=== PATIENT | female | born 1945 | race Caucasian/White ===

== ENCOUNTER → 2019-01-22 | Outpatient (CLI) | payer MEDICARE | LOC: CARD 09:04 | PROVIDERS: ATTEND Internal Medicine Cardiovascular Disease | DX: I10 Essential (primary) hypertension (principal); R07.9 Chest pain, unspecified; Z82.49 Family history of ischemic heart disease and other diseases of the circulatory system; Z83.3 Family history of diabetes mellitus | CPT/HCPCS: 93306 ==

== ENCOUNTER → 2019-01-31 | Outpatient (CLI) | payer MEDICARE ==
[~2019-01-31] VITALS: Ht 160 cm; Wt 50.8 kg
[~2019-01-31] MED LIST: CATHETER FLUSH 10 ML SYR IV PRN
[2019-01-31 09:28] VITALS: BP 165/77
[2019-01-31 09:31] VITALS: BP 171/86
[2019-01-31 09:34] VITALS: BP 172/77
--- NOTE | 2019-01-31 15:59 | STRESS TEST ---
DATE OF SERVICE: 01/31/2019 EXERCISE MYOVIEW STRESS TEST REPORT REFERRING PHYSICIAN: Yvan Mensah DO Baseline heart rate is 81, baseline blood pressure 164/76. Baseline EKG sinus rhythm with no ischemic changes. In summary, the patient was injected with 10.33 mCi of technetium-99 Myoview and the resting images were obtained. Then, the patient started exercising with a baseline heart rate, blood pressure and EKG mentioned above, was able to exercise for a total of 2 minutes 30 seconds on standard Francis protocol. With peak exercise level, EKG was showing no significant ischemic changes. Blood pressure was 172/77. During recovery, heart rate and blood pressure returned to baseline. EKG returned to baseline. The resting and stress images were reviewed and compared in the short axis, horizontal long axis, and vertical long axis views. Review of the images showed good radiotracer uptake with no significant ischemia or infarction. SSS is 1, SDS 1, TID value 1.04. On the gated images, the left ventricle appeared to be normal size with normal contractility. Calculated ejection fraction 75%. CONCLUSION: 1. Poor exercise tolerance, a total of 2 minutes 30 seconds on standard Francis protocol, total of 4.0 METS achieving 93% of maximum expected heart rate. 2. Appropriate heart rate and blood pressure response to exercise returned to baseline during recovery. 3. Nondiagnostic EKG changes with exercise returned to baseline during recovery. 4. No ischemia or infarction on SPECT images. 5. Normal left ventricular size with normal contractility. Calculated ejection fraction 75%. Job ID: [id number] DocumentID: [id number] Dictated Date: 01/31/2019 15:17:09 Sport Internship Date: 01/31/2019 15:58:32 Dictated By: ANJEL SETHI MD
== END ==
LOC: CARD 07:30
PROVIDERS: ATTEND Internal Medicine Cardiovascular Disease
DX: I10 Essential (primary) hypertension (principal); I25.10 Atherosclerotic heart disease of native coronary artery without angina pectoris; Z83.3 Family history of diabetes mellitus; Z82.49 Family history of ischemic heart disease and other diseases of the circulatory system
CPT/HCPCS: 78452; 93017

== ENCOUNTER 2019-05-29 13:33 | Outpatient (CLI) | payer MEDICARE ==
[~2019-05-29] VITALS: Ht 157.5 cm; Wt 46.7 kg
[2019-05-29 13:47] VITALS: BP 146/72
[2019-05-29 14:13] LABS: BASOPHILS % (AUTO) 0 % (0-10); EOSINOPHILS % (AUTO) 0 % (0-10); HEMATOCRIT 40 % (35-52); LYMPHOCYTES # (AUTO) 0.8 X 10^3 (1.0-4.0); LYMPHOCYTES % (AUTO) 14 % (12-44); MEAN CORPUSCULAR HEMOGLOBIN 30 PG (25-34); MEAN CORPUSCULAR HGB CONC 32 G/DL (32-36); MEAN CORPUSCULAR VOLUME 94 FL (80-99); MEAN PLATELET VOLUME 11.6 FL (7.4-10.4); MONOCYTES # (AUTO) 0.6 X 10^3 (0.0-1.0); MONOCYTES % (AUTO) 11 % (0-12); NEUTROPHILS # (AUTO) 4.1 X 10^3 (1.8-7.8); NEUTROPHILS % (AUTO) 75 % (42-75); PLATELET COUNT 179 10^3/uL (130-400); RED CELL DISTRIBUTION WIDTH 12.6 % (10.0-14.5); WHITE BLOOD COUNT 5.4 10^3/uL (4.3-11.0)
[2019-05-30] MEDS ORDERED: MAGN400T6 PO (08:40)
[2019-05-30] MEDS ORDERED: MV-M1TAB57 PO (08:40)
[2019-05-30] MEDS ORDERED: AMLO10TA7 PO (08:40)
[2019-05-30] MEDS ORDERED: ZINC50TA51 PO (08:40)
[2019-05-30] MEDS ORDERED: LOSA1TAB20 PO (08:40)
[2019-05-30] MEDS ORDERED: CA C1TAB79 PO (08:40)
[2019-06-01] MEDS ORDERED: IBUP-1773 PO (13:56)
[2019-06-01] MEDS ORDERED: OXYC1TAB87 PO ×2 (13:56→14:04)
== END 2019-05-29 14:02 | disposition home or self-care (01) ==
LOC: PREOP 13:33
PROVIDERS: ATTEND Obstetrics & Gynecology
DX: Z01.812 Encounter for preprocedural laboratory examination (principal); D64.9 Anemia, unspecified; N95.0 Postmenopausal bleeding; R19.00 Intra-abdominal and pelvic swelling, mass and lump, unspecified site
CPT/HCPCS: 36415; 85025; 86850; 86900; 86901; 87081

== ENCOUNTER 2019-06-01 12:10 | Day surgery (SDC) | payer MEDICARE ==
[2019-06-01] VITALS (9 sets, daily range): BP systolic 93–162; BP diastolic 53–82
[~2019-06-01] VITALS: Ht 157.5 cm; Wt 46.7 kg
[~2019-06-01 12:10] MED LIST changes: +AMLO10TA7 PO; +CA C1TAB79 PO; -CATHETER FLUSH 10 ML SYR IV PRN; +LOSA1TAB20 PO; +MAGN400T6 PO; +MV-M1TAB57 PO; +ZINC50TA51 PO
[2019-06-01] MEDS: LACTATED RINGERS 1,000 ML IV PRN ×2 (12:50→16:00)
[2019-06-01] MEDS ORDERED: proPOfol 200 MG/20 ML (DIPRIVAN) VIAL IV ONE (12:55)
[2019-06-01] MEDS ORDERED: LIDOCAINE PF 2% 5 ML (XYLOCAINE) VIAL ONE (12:55)
[2019-06-01] MEDS ORDERED: ONDANSETRON 4 MG/2 ML (SDV) Z0FRAN ONE (12:55)
[2019-06-01] MEDS ORDERED: DEXAMETHASONE 10 MG/ML (DECADRON) 1 ML VIAL ONE (12:55)
[2019-06-01] MEDS ORDERED: SEVOFLURANE (ULTANE) 15 ML INHAL SOLN ONE ×4 (12:55→15:02)
[2019-06-01] MEDS ORDERED: fentaNYL INJECTION 100 MCG/2 ML AMP ONE (12:56)
[2019-06-01] MEDS ORDERED: MIDAZOLAM 2 MG/2 ML (VERSED) VIAL ONE (12:56)
[2019-06-01] MEDS ORDERED: ROCURONIUM 10 MG/ML 5 ML SYRINGE IV ONE (12:58)
[2019-06-01] MEDS ORDERED: ceFAZolin INJECTION 1,000 MG in WATER (STERILE) FOR INJECTION 10 ML IV ONE (13:00)
[2019-06-01] MEDS ORDERED: BUP/EPI 0.25% 1:200,000 (MARCAINE) 10 ML VIAL IJ ONE (13:48)
--- NOTE | 2019-06-01 13:50 | Progress Note-Pre Operative ---
Pre-Operative Progress Note H&P Reviewed The H&P was reviewed, patient examined and no changes noted. Date Seen by Provider: Jun 01, 2019 Time Seen by Provider: 13:50 Date H&P Reviewed: Jun 01, 2019 Time H&P Reviewed: 13:50 Pre-Operative Diagnosis: Menopausal bleeding/intrauterine mass TABITHA SUAREZ MD Jun 01, 2019 13:50
[2019-06-01] MEDS ORDERED: D5 LR IV SOLUTION 1,000 ML IV SCH (13:51)
--- NOTE | 2019-06-01 13:51 | Progress Note-Post Operative ---
Post-Operative Progess Note Surgeon (s)/Sales Assistant Institutional Sales (s) Surgeon TABITHA SUAREZ MD Sales Assistant Institutional Sales: none Pre-Operative Diagnosis Menopausal bleeding/intrauterine mass Post-Operative Diagnosis Same with final pathology pending - benign frozen section pathology Procedure & Operative Findings Date of Procedure 06/01/19 Procedure Performed/Findings Hysteroscopy with directed biopsy and D&C Anesthesia Type GETA Estimated Blood Loss Estimated blood loss (mL): Minimal Specimens/Packing Specimens Removed Intrauterine directed endometrial biopsy and endometrial curettings Packing: None TABITHA SUAREZ MD Jun 01, 2019 13:51
[2019-06-01] MEDS ORDERED: IBUP-1773 PO (13:56)
[2019-06-01] MEDS ORDERED: OXYC1TAB87 PO ×2 (13:56→14:04)
--- NOTE | 2019-06-01 13:57 | Discharge Instructions ---
Discharge Instructions Discharge Medications New, Converted or Re-Newed RX: RX on Chart Patient Instructions Patient Instructions: As directed Return to The Hospital For: As directed Activity & Diet Discharge Diet: No Restrictions Activity as Tolerated: No Orders-Post D/C & Referrals Follow Up Appt: Call to make follow up appt. for patient in 2 weeks. Activity: Rest for 24 hours, than as tolerated. Please call in RX to patient pharmacy. Diet: As tolerated-Clear Liquids only if nauseated. shower or tub bathe as desired. No driving for 24 hours, no alcoholic beverages for 24 hours, and nothing per vagina (no tampons, douching, or intercourse) for 2 weeks. Patient to return to the clinic as soon as possible for: Temperature greater than 101F, Severe Pain, Foul discharge from incision or vagina, Excessive Bleeding (more than a period). TABITHA SUAREZ MD Jun 01, 2019 13:57
[2019-06-01] MEDS ORDERED: ONDANSETRON 4 MG/2 ML (SDV) Z0FRAN IVP PRN ×2 (14:00→15:30)
[2019-06-01] MEDS ORDERED: PROMETHAZINE INJ 25 MG/ML (PHENERGAN) AMP IM ONE (14:00)
[2019-06-01] MEDS ORDERED: oxyCODONE/APAP 5/325MG (PERCOCET 5) TABLET PO PRN (14:00)
[2019-06-01] MEDS ORDERED: MEPERIDINE (DEMEROL) INJ 100 MG/ML IM ONE (14:00)
[2019-06-01] MEDS ORDERED: KETOROLAC 30 MG/ML VIAL IVP ONE (14:00)
[2019-06-01] MEDS ORDERED: KETOROLAC 30 MG/ML VIAL ONE (15:22)
[2019-06-01] MEDS ORDERED: morphine INJ 10 MG/ML 1ML (SYR OR VIAL) IVP ONE (15:30)
[2019-06-01] MEDS ORDERED: MEPERIDINE (DEMEROL) INJ 50 MG/ML IVP ONE (15:30)
[2019-06-01] MEDS ORDERED: PROMETHAZINE INJ 25 MG/ML (PHENERGAN) AMP IVP ONE (15:30)
[2019-06-01] MEDS ORDERED: HYDROmorphone 2 MG/ML VIAL (DILAUDID) IV ONE (15:30)
--- OUTSIDE RECORDS SUMMARY | 2019-06-01 20:39 | XMS REPORT | Continuity of Care Document ---
Author Organization Unknown Address Unknown Allergies Active Description Code Type Severity Reaction Onset Reported/Identified Relationship to Patient Clinical Status Yes NO KNOWN DRUG ALLERGIES UNKNOWN NO KNOWN DRUG ALLERG Yes No Known Drug Allergies [id number] Drug Allergy Unknown N/A 01/31/2019 Medications There is no data. Problems Date Dx Coded Attending Type Code Diagnosis Diagnosed By 12/25/2014 COCO PATRICIA, RODRIGO Ot 288.50 12/25/2014 COCO PATRICIA, RODRIGO Ot 401.9 12/25/2014 COCO PATRICIA, RODRIGO Ot 716.90 01/02/2015 COCO PATRICIA, RODRIGO Ot 288.50 01/02/2015 COCO PATRICIA, RODRIGO Ot 401.9 01/02/2015 COCO PATRICIA, RODRIGO Ot 716.90 10/27/2017 Yvan Mensah V72.31 ROUTINE GYNECOLOGICAL EXAMINATION 10/27/2017 Yvan Mensah Z01.411 ENCOUNTER FOR GYNECOLOGICAL EXAMINATION (GENERAL) (ROUTINE) WITH ABNORMAL FINDINGS 10/27/2017 Yvan Mensah V72.31 ROUTINE GYNECOLOGICAL EXAMINATION 10/27/2017 Yvan Mensah Z01.411 ENCOUNTER FOR GYNECOLOGICAL EXAMINATION (GENERAL) (ROUTINE) WITH ABNORMAL FINDINGS 03/16/2018 Yvan Mensah 401.9 UNSPECIFIED ESSENTIAL HYPERTENSION 03/16/2018 Yvan Mensah I10 ESSENTIAL (PRIMARY) HYPERTENSION 03/16/2018 Yvan Mensah 401.9 UNSPECIFIED ESSENTIAL HYPERTENSION 03/16/2018 Yvan Mensah I10 ESSENTIAL (PRIMARY) HYPERTENSION 08/17/2018 Yvan Mensah 729.5 PAIN IN LIMB 08/17/2018 Yvan Mensah M79.672 PAIN IN LEFT FOOT 08/17/2018 Yvan Mensah 729.5 PAIN IN LIMB 08/17/2018 Yvan Mensah M79.672 PAIN IN LEFT FOOT 11/30/2018 Yvan Mensah 401.9 UNSPECIFIED ESSENTIAL HYPERTENSION 11/30/2018 Yvan Mensah I10 ESSENTIAL (PRIMARY) HYPERTENSION 11/30/2018 Yvan Mensah 401.9 UNSPECIFIED ESSENTIAL HYPERTENSION 11/30/2018 Yvan Mensah I10 ESSENTIAL (PRIMARY) HYPERTENSION 11/30/2018 Yvan Mensah V76.19 OTHER SCREENING BREAST EXAMINATION 11/30/2018 Yvan Mensah Z12.39 ENCOUNTER FOR OTHER SCREENING FOR MALIGNANT NEOPLASM OF BREAST 11/30/2018 Yvan Mensah 401.9 UNSPECIFIED ESSENTIAL HYPERTENSION 11/30/2018 Yvan Mensah I10 ESSENTIAL (PRIMARY) HYPERTENSION 11/30/2018 Yvan Mensah V76.19 OTHER SCREENING BREAST EXAMINATION 11/30/2018 Yvan Mensah Z12.39 ENCOUNTER FOR OTHER SCREENING FOR MALIGNANT NEOPLASM OF BREAST 01/25/2019 ANJEL SETHI MD, Ot I10 ESSENTIAL (PRIMARY) HYPERTENSION 01/25/2019 ANJEL SETHI MD Ot R07.9 CHEST PAIN, UNSPECIFIED 01/25/2019 ANJEL SETHI MD Ot Z82.49 FAMILY HX OF ISCHEM HEART DIS AND OTH DI 01/25/2019 ANJEL SETHI MD Ot Z83.3 FAMILY HISTORY OF DIABETES MELLITUS 01/29/2019 RODRIGO SEPULVEDA MD Ot 288.50 LEUKOCYTOPENIA, UNSPECIFIED 01/29/2019 RODRIGO SEPULVEDA MD Ot 401.9 HYPERTENSION NOS 01/29/2019 RODRIGO SEPULVEDA MD Ot 716.90 ARTHROPATHY NOS-UNSPEC 01/29/2019 RODRIGO SEPULVEDA MD Ot 288.50 LEUKOCYTOPENIA, UNSPECIFIED 01/29/2019 RODRIGO SEPULVEDA MD Ot 401.9 HYPERTENSION NOS 01/29/2019 RODRIGO SEPULVEDA MD Ot 716.90 ARTHROPATHY NOS-UNSPEC 01/29/2019 ANJEL SETHI MD Ot I10 ESSENTIAL (PRIMARY) HYPERTENSION 01/29/2019 ANJEL SETHI MD Ot R07.9 CHEST PAIN, UNSPECIFIED 01/29/2019 ANJEL SETHI MD Ot Z82.49 FAMILY HX OF ISCHEM HEART DIS AND OTH DI 01/29/2019 ANJEL SETHI MD Ot Z83.3 FAMILY HISTORY OF DIABETES MELLITUS 01/29/2019 ANJEL SETHI MD Ot I10 ESSENTIAL (PRIMARY) HYPERTENSION 01/29/2019 ANJEL SETHI MD Ot R07.9 CHEST PAIN, UNSPECIFIED 01/29/2019 ANJEL SETHI MD Ot Z82.49 FAMILY HX OF ISCHEM HEART DIS AND OTH DI 01/29/2019 ANJEL SETHI MD Ot Z83.3 FAMILY HISTORY OF DIABETES MELLITUS 02/01/2019 ANJEL SETHI MD Ot I10 ESSENTIAL (PRIMARY) HYPERTENSION 02/01/2019 ANJEL SETHI MD Ot I25.10 ATHSCL HEART DISEASE OF [place] CORONARY 02/01/2019 ANJEL SETHI MD Ot Z82.49 FAMILY HX OF ISCHEM HEART DIS AND OTH DI 02/01/2019 ANJEL SETHI MD Ot Z83.3 FAMILY HISTORY OF DIABETES MELLITUS 02/13/2019 ANJEL SETHI MD Ot I10 ESSENTIAL (PRIMARY) HYPERTENSION 02/13/2019 ANJEL SETHI MD Ot R07.9 CHEST PAIN, UNSPECIFIED 02/13/2019 ANJEL SETHI MD Ot Z82.49 FAMILY HX OF ISCHEM HEART DIS AND OTH DI 02/13/2019 ANJEL SETHI MD Ot Z83.3 FAMILY HISTORY OF DIABETES MELLITUS 02/22/2019 ANJEL SETHI MD Ot I10 ESSENTIAL (PRIMARY) HYPERTENSION 02/22/2019 ANJEL SETHI MD Ot R07.9 CHEST PAIN, UNSPECIFIED 02/22/2019 ANJEL SETHI MD Ot Z82.49 FAMILY HX OF ISCHEM HEART DIS AND OTH DI 02/22/2019 ANJEL SETHI MD Ot Z83.3 FAMILY HISTORY OF DIABETES MELLITUS 02/27/2019 ANJEL SETHI MD Ot I10 ESSENTIAL (PRIMARY) HYPERTENSION 02/27/2019 ANJEL SETHI MD Ot I25.10 ATHSCL HEART DISEASE OF [place] CORONARY 02/27/2019 ANJEL SETHI MD Ot Z82.49 FAMILY HX OF ISCHEM HEART DIS AND OTH DI 02/27/2019 ANJEL SETHI MD Ot Z83.3 FAMILY HISTORY OF DIABETES MELLITUS 02/28/2019 ANJEL SETHI MD J Ot I10 ESSENTIAL (PRIMARY) HYPERTENSION 02/28/2019 ANJEL SETHI MD Ot I25.10 ATHSCL HEART DISEASE OF [place] CORONARY 02/28/2019 ANJEL SETHI MD Ot Z82.49 FAMILY HX OF ISCHEM HEART DIS AND OTH DI 02/28/2019 ANJEL SETHI MD Ot Z83.3 FAMILY HISTORY OF DIABETES MELLITUS 05/29/2019 RODRIGO SEPULVEDA MD Ot 288.50 LEUKOCYTOPENIA, UNSPECIFIED 05/29/2019 RODRIGO SEPULVEDA MD Ot 401.9 HYPERTENSION NOS 05/29/2019 RODRIGO SEPULVEDA MD Ot 716.90 ARTHROPATHY NOS-UNSPEC 05/29/2019 RODRIGO SEPULVEDA MD Ot 288.50 LEUKOCYTOPENIA, UNSPECIFIED 05/29/2019 RODRIGO SEPULVEDA MD Ot 401.9 HYPERTENSION NOS 05/29/2019 RODRIGO SEPULVEDA MD Ot 716.90 ARTHROPATHY NOS-UNSPEC 05/29/2019 ANJEL SETHI MD Ot I10 ESSENTIAL (PRIMARY) HYPERTENSION 05/29/2019 ANJEL SETHI MD Ot I25.10 ATHSCL HEART DISEASE OF [place] CORONARY 05/29/2019 ANJEL SETHI MD Ot Z82.49 FAMILY HX OF ISCHEM HEART DIS AND OTH DI 05/29/2019 ANJEL SETHI MD Ot Z83.3 FAMILY HISTORY OF DIABETES MELLITUS 05/29/2019 ANJEL SETHI MD Ot I10 ESSENTIAL (PRIMARY) HYPERTENSION 05/29/2019 ANJEL SETHI MD Ot R07.9 CHEST PAIN, UNSPECIFIED 05/29/2019 ANJEL SETHI MD Ot Z82.49 FAMILY HX OF ISCHEM HEART DIS AND OTH DI 05/29/2019 ANJEL SETHI MD Ot Z83.3 FAMILY HISTORY OF DIABETES MELLITUS 05/30/2019 RODRIGO SEPULVEDA MD Ot 288.50 LEUKOCYTOPENIA, UNSPECIFIED 05/30/2019 RODRIGO SEPULVEDA MD Ot 401.9 HYPERTENSION NOS 05/30/2019 RODRIGO SEPULVEDA MD Ot 716.90 ARTHROPATHY NOS-UNSPEC 05/30/2019 RODRIGO SEPULVEDA MD Ot 288.50 LEUKOCYTOPENIA, UNSPECIFIED 05/30/2019 RODRIGO SEPULVEDA MD Ot 401.9 HYPERTENSION NOS 05/30/2019 RODRIGO SEPULVEDA MD Ot 716.90 ARTHROPATHY NOS-UNSPEC 05/30/2019 ANJEL SETHI MD Ot I10 ESSENTIAL (PRIMARY) HYPERTENSION 05/30/2019 ANJEL SETHI MD Ot I25.10 ATHSCL HEART DISEASE OF [place] CORONARY 05/30/2019 ANJEL SETHI MD, Ot Z82.49 FAMILY HX OF ISCHEM HEART DIS AND OTH DI 05/30/2019 ANJEL SETHI MD, Ot Z83.3 FAMILY HISTORY OF DIABETES MELLITUS 05/30/2019 ANJEL SETHI MD, Ot I10 ESSENTIAL (PRIMARY) HYPERTENSION 05/30/2019 ANJEL SETHI MD, Ot R07.9 CHEST PAIN, UNSPECIFIED 05/30/2019 ANJEL SETHI MD, Ot Z82.49 FAMILY HX OF ISCHEM HEART DIS AND OTH DI 05/30/2019 ANJEL SETHI MD, Ot Z83.3 FAMILY HISTORY OF DIABETES MELLITUS 06/01/2019 TABITHA SUAREZ MD, Ot D64.9 ANEMIA, UNSPECIFIED 06/01/2019 TABITHA SUAREZ MD, Ot N95.0 POSTMENOPAUSAL BLEEDING 06/01/2019 TABITHA SUAREZ MD, Ot R19.00 INTRA-ABD AND PELVIC SWELLING, MASS AND 06/01/2019 TABITHA SUAREZ MD, Ot Z01.812 ENCOUNTER FOR PREPROCEDURAL LABORATORY E Procedures There is no data. Results Test Result Range Lipid Panel - 10/25/16 10:41 C/HDL 2.6 3.7-6.7 Cholesterol 226 mg/dL 100-240 HDL 86 mg/dL 30-85 LDL-Calculated 129 mg/dL 0-100 Trig 54 mg/dL 35-160 VLDL 11 mg/dL 0-42 Lipid Panel - 10/27/17 10:34 C/HDL 2.9 3.7-6.7 Cholesterol 240 mg/dL 100-240 HDL 84 mg/dL 30-85 LDL-Calculated 144 mg/dL 0-100 Trig 61 mg/dL 35-160 VLDL 12 mg/dL 0-42 Comprehensive Metabolic Panel - 10/27/17 10:34 Albumin 4.9 g/dL 3.6-5.1 ALP 72 U/L 35-130 ALT 28 U/L 6-45 Anion Gap 16 6-14 AST 37 U/L 2-40 BUN 26 mg/dL 5-25 Calcium 10.1 mg/dL 8.3-10.4 Chloride 104 mmol/L 95-114 CO2 27 mEq/L 22-33 Creat 0.73 mg/dL 0.50-1.50 eGFR 78 mL/min/1.73m2 >59 Globulin 3.0 g/dL 2.3-3.5 Glucose 114 mg/dL 70-110 Osmo 300 280-295 Potassium 4.1 mmol/L 3.5-5.3 Sodium 143 mmol/L 134-148 TBil 0.8 mg/dL 0.2-1.2 TP 7.9 g/dL 6.0-8.3 BMP - 03/16/18 10:52 Anion Gap 17 6-14 BUN 23 mg/dL 5-25 Calcium 10.1 mg/dL 8.3-10.4 Chloride 102 mmol/L 95-114 CO2 25 mEq/L 22-33 Creat 0.71 mg/dL 0.50-1.50 eGFR 81 mL/min/1.73m2 >59 Glucose 101 mg/dL 70-110 Osmo 293 280-295 Potassium 4.2 mmol/L 3.5-5.3 Sodium 140 mmol/L 134-148 Lipid Panel - 11/30/18 10:08 C/HDL 2.3 3.7-6.7 Cholesterol 200 mg/dL 100-240 HDL 88 mg/dL 30-85 LDL-Calculated 103 mg/dL 0-100 Trig 44 mg/dL 35-160 VLDL 9 mg/dL 0-42 Comprehensive Metabolic Panel - 11/30/18 10:08 Albumin 5.1 g/dL 3.6-5.1 ALP 64 U/L 35-130 ALT 25 U/L 6-45 Anion Gap 15 6-14 AST 34 U/L 2-40 BUN 22 mg/dL 5-25 Calcium 9.9 mg/dL 8.3-10.4 Chloride 102 mmol/L 95-114 CO2 29 mEq/L 22-33 Creat 0.72 mg/dL 0.50-1.50 eGFR 80 mL/min/1.73m2 >59 Globulin 2.0 g/dL 2.3-3.5 Glucose 103 mg/dL 70-110 Osmo 296 280-295 Potassium 3.8 mmol/L 3.5-5.3 Sodium 142 mmol/L 134-148 TBil 0.7 mg/dL 0.2-1.2 TP 7.1 g/dL 6.0-8.3 Methicillin resistant Staphylococcus aureus (MRSA) screening culture - 05/29/19 13:53 Methicillin resistant Staphylococcus aureus (MRSA) screening culture NEG NRG Complete blood count (CBC) with automated white blood cell (WBC) differential - 05/29/19 13:55 Blood leukocytes automated count (number/volume) 5.4 10*3/uL 4.3-11.0 Blood erythrocytes automated count (number/volume) 4.28 10*6/uL 4.35-5.85 Venous blood hemoglobin measurement (mass/volume) 13.0 g/dL 11.5-16.0 Blood hematocrit (volume fraction) 40 % 35-52 Automated erythrocyte mean corpuscular volume 94 [foz_us] 80-99 Automated erythrocyte mean corpuscular hemoglobin (mass per erythrocyte) 30 pg 25-34 Automated erythrocyte mean corpuscular hemoglobin concentration measurement (mass/volume) 32 g/dL 32-36 Automated erythrocyte distribution width ratio 12.6 % 10.0- 14.5 Automated blood platelet count (count/volume) 179 10*3/uL 130-400 Automated blood platelet mean volume measurement 11.6 [foz_us] 7.4-10.4 Automated blood neutrophils/100 leukocytes 75 % 42-75 Automated blood lymphocytes/100 leukocytes 14 % 12-44 Blood monocytes/100 leukocytes 11 % 0-12 Automated blood eosinophils/100 leukocytes 0 % 0-10 Automated blood basophils/100 leukocytes 0 % 0-10 Blood neutrophils automated count (number/volume) 4.1 10*3 1.8-7.8 Blood lymphocytes automated count (number/volume) 0.8 10*3 1.0-4.0 Blood monocytes automated count (number/volume) 0.6 10*3 0.0- 1.0 Automated eosinophil count 0.0 10*3/uL 0.0-0.3 Automated blood basophil count (count/volume) 0.0 10*3/uL 0.0-0.1 Blood type T Indirect antibody screen panel - 05/29/19 13:55 WRISTBAND NUMBER TNP NRG ABO+Rh group AP NRG Blood group antibody screen NEGATIVE NRG Blood type T Indirect antibody screen panel - 06/01/19 13:04 WRISTBAND NUMBER [id number] NRG ABO+Rh group AP NRG Blood group antibody screen NEGATIVE NRG Encounters ACCT No. Visit Date/Time Discharge Status Pt. Type Provider Facility Loc./Unit Complaint [id number] 06/01/2019 12:10:00 06/01/2019 17:05:00 DIS Outpatient TABITHA SUAREZ MD Via [facility] SDC PELVIC MASS, POST MENOPAUSAL BLEEDING [id number] 05/29/2019 13:33:00 05/29/2019 14:02:00 DIS Outpatient TABITHA SUAREZ MD [facility] PREOP PELVIC MASS, POST MENOPAUSAL BLEEDING [id number] 01/31/2019 07:30:00 01/31/2019 23:59:59 CLS Outpatient ANJEL SETHI MD Via [facility] CARD HTN [id number] 01/22/2019 09:04:00 01/22/2019 23:59:59 CLS Outpatient ANJEL SETHI MD Via [facility] CARD HTN [id number] 12/11/2014 13:32:00 12/11/2014 23:59:59 CLS Outpatient RODRIGO SEPULVEDA MD Via [facility] ONC [id number] 12/12/2013 14:42:00 12/12/2013 23:59:59 CLS Outpatient RODRIGO SEPULVEDA MD Via [facility] ONC [id number] 06/13/2013 14:47:00 06/13/2013 23:59:59 CLS Outpatient [id number] 11/30/2018 10:03:00 11/30/2018 23:59:00 DIS Outpatient Yvan Mensah [id number] 08/17/2018 10:49:00 08/17/2018 23:59:00 DIS Outpatient Yvan Mensah [id number] 07/31/2018 15:44:00 07/31/2018 23:59:00 DIS Outpatient Yvan Mensah [id number] 03/16/2018 10:45:00 03/16/2018 23:59:00 DIS Outpatient Yvan Mensah [id number] 10/27/2017 10:28:00 10/27/2017 23:59:00 DIS Outpatient Yvan Mensah [id number] 10/25/2016 10:22:00 10/25/2016 23:59:00 DIS Outpatient Yvan Mensah [id number] 12/21/2014 06:13:59 ACT Document Registration
--- NOTE | 2019-06-02 01:34 | OPERATIVE REPORT ---
DATE OF SERVICE: 06/01/2019 PREOPERATIVE DIAGNOSES: Postmenopausal bleeding and intrauterine mass. POSTOPERATIVE DIAGNOSES: Postmenopausal bleeding and intrauterine mass with benign pathology on frozen section and permanent pathology sections pending. OPERATIVE PROCEDURE: Hysteroscopy with directed biopsy and D and C. OPERATIVE DESCRIPTION: With the patient in supine position under satisfactory general anesthesia, she was repositioned in dorsal lithotomy position in the [facility] and prepped and draped in the usual fashion for abdominal and vaginal surgery using robotic assistance if hysterectomy was needed. Weighted speculum was placed in the posterior fornix of vagina, cervix exposed and grasped anteriorly with single tooth tenaculum. Uterus was sounded to 8 cm with uterine sound. The cervix was then serially dilated with Shay dilators to accommodate a hysteroscope, which was introduced using LR as a distending medium and the endometrial cavity was examined. There were several fibrous appearing masses emanating from the fundus of the uterus. Several of these were biopsied directly and that there was only suspicious lesions noted on the hysteroscopy. Those fragments of the tissue was sent to pathology for frozen section with the return report being a smooth muscle tissue with very little or no endometrial tissue recovered which was consistent with the hysteroscopic findings. Further pathology was pending, but at this point it was felt that there was no likelihood of neoplasia and the procedure was terminated. The operative instruments were removed. D and C had been performed and that tissue was sent separately from the directed biopsy tissue as well. There was some bleeding from the cervical os after the procedure was terminated. A single suture of 2-0 Vicryl was used to ligate the site of the bleeding from the cervix. With hemostasis complete, the tenaculum and speculum were removed from the vagina. There was no bleeding. The urinary bladder was drained with a straight catheter recovering 300 mL. A total of 600 mL of distending medium was used and almost that same amount was recovered. Sponge and needle counts were correct on completion of the procedure. Estimated blood loss was minimal. The patient tolerated the procedure well and was uneventfully awakened from general anesthesia and transferred to recovery room in stable condition with plans for discharge home PAR with followup in clinic for both her recovery and for the final and permanent pathology. Job ID: [id number] DocumentID: [id number] Dictated Date: 06/01/2019 15:06:56 Helicopter Officer Date: 06/02/2019 00:39:14 Dictated By: TABITHA SUAREZ MD
== END 2019-06-01 17:05 | disposition home or self-care (01) ==
LOC: SDC 12:10
PROVIDERS: ATTEND Obstetrics & Gynecology
DX: N95.0 Postmenopausal bleeding (principal); I10 Essential (primary) hypertension; E78.5 Hyperlipidemia, unspecified; M19.91 Primary osteoarthritis, unspecified site; Z79.899 Other long term (current) drug therapy
CPT/HCPCS: 36415; 86850; 86900; 86901

== ENCOUNTER 2019-08-09 09:14 | Outpatient (CLI) | payer MEDICARE ==
[~2019-08-09] VITALS: Ht 157 cm; Wt 46.4 kg
[~2019-08-09 09:14] MED LIST changes: +IBUP-1773 PO; +OXYC1TAB87 PO
[2019-08-09 09:27] VITALS: BP 144/76
[2019-08-09 10:04] LABS: BASOPHILS % (AUTO) 1 % (0-10); EOSINOPHILS % (AUTO) 1 % (0-10); HEMATOCRIT 41 % (35-52); HEMOGLOBIN 13.8 G/DL (11.5-16.0); LYMPHOCYTES # (AUTO) 0.6 X 10^3 (1.0-4.0); LYMPHOCYTES % (AUTO) 12 % (12-44); MEAN CORPUSCULAR HEMOGLOBIN 31 PG (25-34); MEAN CORPUSCULAR HGB CONC 33 G/DL (32-36); MEAN CORPUSCULAR VOLUME 92 FL (80-99); MEAN PLATELET VOLUME 11.3 FL (7.4-10.4); MONOCYTES # (AUTO) 0.5 X 10^3 (0.0-1.0); MONOCYTES % (AUTO) 10 % (0-12); NEUTROPHILS # (AUTO) 3.6 X 10^3 (1.8-7.8); NEUTROPHILS % (AUTO) 77 % (42-75); PLATELET COUNT 183 10^3/uL (130-400); RED CELL DISTRIBUTION WIDTH 12.6 % (10.0-14.5); WHITE BLOOD COUNT 4.7 10^3/uL (4.3-11.0)
--- NOTE | 2019-08-09 16:37 | Progress Note-Post Operative ---
Post-Operative Progess Note Surgeon (s)/Sample Puller (s) Surgeon TABITHA SUAREZ MD Sample Puller: Nimco Griffin RN Pre-Operative Diagnosis PMB - Pelvic Mass - fibroid uterus Post-Operative Diagnosis same Procedure & Operative Findings Date of Procedure 08/09/19 Procedure Performed/Findings tlh with bso Anesthesia Type geta Estimated Blood Loss Estimated blood loss (mL): min Specimens/Packing Specimens Removed uterus tubes and ovaries Packing: none TABITHA SUAREZ MD Aug 09, 2019 16:37
--- NOTE | 2019-08-09 16:37 | Progress Note-Pre Operative ---
Pre-Operative Progress Note H&P Reviewed The H&P was reviewed, patient examined and no changes noted. Date Seen by Provider: Aug 10, 2019 Time Seen by Provider: 12:30 Date H&P Reviewed: Aug 10, 2019 Time H&P Reviewed: 12:30 Pre-Operative Diagnosis: PMB - Pelvic Mass - fibroid uterus TABITHA SUAREZ MD Aug 09, 2019 16:36
[2019-08-09] MEDS ORDERED: DOCU-143 PO (16:39)
--- NOTE | 2019-08-09 16:40 | Discharge Instructions ---
Discharge Instructions Discharge Medications New, Converted or Re-Newed RX: Other Patient Instructions Return to The Hospital For: As directed Activity & Diet Discharge Diet: No Restrictions Activity as Tolerated: No Orders-Post D/C & Referrals Follow Up Appt: Return to clinic on Tuesday August 13, 2019 at 930 a.m. for staple removal Call to make follow up appt. for patient in 4 weeks. Activity: Rest for 24 hours, than as tolerated. Wound Care: May remove Band-Aid tomorrow. Replace as desired. Keep incisions clean and dry. Wash daily with soap and water. Continue home medications Diet: As tolerated-Clear Liquids only if nauseated. shower or tub bathe as desired. No driving for 24 hours, no alcoholic beverages for 24 hours, and nothing per vagina (no tampons, douching, or intercourse) for 8 weeks. Patient to return to the clinic as soon as possible for: Temperature greater than 101F, Severe Pain, Foul discharge from incision or vagina, Excessive Bleeding (more than a period). TABITHA SUAREZ MD Aug 09, 2019 16:40
== END 2019-08-09 15:00 | disposition home or self-care (01) ==
LOC: PREOP 09:14
PROVIDERS: ATTEND Obstetrics & Gynecology
DX: Z01.818 Encounter for other preprocedural examination (principal)
CPT/HCPCS: 36415; 85025; 87081

== ENCOUNTER 2019-08-10 11:07 | Day surgery (SDC) | payer MEDICARE ==
[~2019-08-10] VITALS: Ht 157 cm; Wt 46.4 kg
[2019-08-10] VITALS (9 sets, daily range): BP systolic 94–142; BP diastolic 50–79
[~2019-08-10 11:07] MED LIST changes: +DOCU-143 PO
[2019-08-10] MEDS ORDERED: ceFAZolin INJECTION 1,000 MG in WATER (STERILE) FOR INJECTION 10 ML IV ONE (11:30)
[2019-08-10] MEDS ORDERED: BUP/EPI 0.25% 1:200,000 (MARCAINE) 10 ML VIAL IJ ONE (11:33)
[2019-08-10] MEDS ORDERED: CATHETER FLUSH 10 ML SYR IV PRN (11:45)
[2019-08-10] MEDS: LACTATED RINGERS 1,000 ML IV PRN ×2 (11:45→13:44)
[2019-08-10] MEDS ORDERED: proPOfol 200 MG/20 ML (DIPRIVAN) VIAL IV ONE (11:55)
[2019-08-10] MEDS ORDERED: SEVOFLURANE (ULTANE) 15 ML INHAL SOLN ONE ×6 (11:55→13:44)
[2019-08-10] MEDS ORDERED: LIDOCAINE PF 2% 5 ML (XYLOCAINE) VIAL ONE (11:55)
[2019-08-10] MEDS ORDERED: DEXAMETHASONE 10 MG/ML (DECADRON) 1 ML VIAL ONE (11:55)
[2019-08-10] MEDS ORDERED: ROCURONIUM 10 MG/ML 5 ML SYRINGE IV ONE (11:55)
[2019-08-10] MEDS ORDERED: ONDANSETRON 4 MG/2 ML (SDV) Z0FRAN ONE (11:55)
[2019-08-10] MEDS ORDERED: MIDAZOLAM 2 MG/2 ML (VERSED) VIAL ONE (11:57)
[2019-08-10] MEDS ORDERED: fentaNYL INJECTION 100 MCG/2 ML AMP ONE (11:59)
[2019-08-10] MEDS ORDERED: GLYCOPYRROLATE 0.2 MG/ML (ROBINUL) 2 ML VIAL ONE (13:44)
[2019-08-10] MEDS ORDERED: NEOSTIGMINE 3 MG/3 ML VIAL ONE (13:44)
[2019-08-10] MEDS ORDERED: morphine INJ 10 MG/ML 1ML (SYR OR VIAL) IVP ONE (14:15)
[2019-08-10] MEDS ORDERED: ONDANSETRON 4 MG/2 ML (SDV) Z0FRAN IVP PRN ×2 (14:15→15:30)
[2019-08-10] MEDS ORDERED: MEPERIDINE (DEMEROL) INJ 50 MG/ML IVP ONE (14:15)
--- NOTE | 2019-08-10 15:20 | NUR ---
pt transferred to room 304 via bed with PACU staff @ side. pt resting with eyes closed. @ side. bedside report received from Haleigh Fritz RN. care assumed of pt.
[2019-08-10] MEDS ORDERED: D5 LR IV SOLUTION 1,000 ML IV SCH (15:27)
[2019-08-10] MEDS ORDERED: PATIENT MAY USE OWN MEDS, ALL MC SCH (15:30)
[2019-08-10] MEDS ORDERED: WATER (STERILE) FOR INJ 10 ML BTL INJ ONE (15:30)
[2019-08-10] MEDS ORDERED: PROMETHAZINE INJ 25 MG/ML (PHENERGAN) AMP IM PRN (15:30)
[2019-08-10] MEDS ORDERED: oxyCODONE/APAP 5/325MG (PERCOCET 5) TABLET PO PRN (15:30)
[2019-08-10] MEDS ORDERED: MEPERIDINE (DEMEROL) INJ 100 MG/ML IM PRN (15:30)
--- NOTE | 2019-08-10 15:30 | NUR ---
initial assessment completed, see interventions for further. vs taken. lapsites x3 D/I, covered with opsite. rosas to DD with clear, yellow urine noted in chamber. SCD's to LE's. @ side.
--- NOTE | 2019-08-10 15:53 | NUR ---
RT notified of IS order.
[2019-08-10] MEDS: KETOROLAC 15 MG/ML VIAL IVP SCH ×2 (16:18→21:54)
--- NOTE | 2019-08-10 19:45 | NUR ---
Pt. stood at side of the bed for a few minutes. States that she feels stable. Hayes cath removed without complications. Pt tolerated well.
--- NOTE | 2019-08-10 21:50 | NUR ---
Pt. transferred to bathroom. Voided 475 of clear, straw colored urine. Pt tolerated well. Scant amount of blood on pad. Pt refuses pad and underwear at this time. Pt back to bed.
--- NOTE | 2019-08-11 00:17 | OPERATIVE REPORT ---
DATE OF SERVICE: 08/10/2019 PREOPERATIVE DIAGNOSES: Postmenopausal bleeding with uterine mass consistent with uterine fibroid and history of endometrial polyps. POSTOPERATIVE DIAGNOSES: Postmenopausal bleeding with uterine mass consistent with uterine fibroid and history of endometrial polyps with pathology pending. OPERATIVE PROCEDURE: Total laparoscopic hysterectomy with bilateral salpingo-oophorectomy. OPERATIVE DESCRIPTION: With the patient in the supine position under satisfactory general anesthesia, she was repositioned in dorsal lithotomy position in the [facility] and prepped and draped in the usual fashion for abdominal and vaginal surgery using the da Indy equipment. Weighted speculum placed in posterior fornix of vagina, cervix exposed and grasped anteriorly with single tooth tenaculum. Uterus was sounded to 7 cm with uterine sound. The cervix was then serially dilated with Shay dilators to accommodate a Ashley II manipulator was placed using a 6 mm x 6 cm uterine probe and a 25 mm colpotomy ring. Sutures of #1 Vicryl placed at 3 and 9 o'clock position of the cervix to stabilize and affix the uterus to the manipulator. Hayes catheter was placed in the urinary bladder and the patient brought in low dorsal lithotomy position. A 12 mm incision was made 4 cm superior to the umbilicus. Veress needle was placed through that incision into the abdominal cavity. Correct placement confirmed with a water drop test. The abdomen was insufflated with 2.4 liters of carbon dioxide. The Veress needle was removed and a 12 mm Optiview laparoscopic port placed. The laparoscope was introduced and ports of 8 mm were placed 8 cm lateral to the umbilicus just above the level of the umbilicus. All three port sites were infiltrated with 0.25% Marcaine with epinephrine prior to incision and port placement. The patient placed in Trendelenburg allowing the bowel spill out of the pelvis. The da Indy column was advanced on the patient and docked and then operative instruments were placed and I retired to the console. At the console using the vessel sealer on the right and a bipolar fenestrated grasper on the left, the pelvis was first examined. There were some adhesions of the sigmoid to the left pelvic brim. These were taken free. They were somewhat fibrotic and filmy, but they were avascular. With those free, the IP ligament could be seen in its entirety. Both ureters were clearly visible and seemed to peristalse. Both ovaries were atretic appearing. The uterus was normal in appearance as were the fallopian tubes. The appendix was identified. It was a normal. Vermiform appendix somewhat retrocecal and was left in situ. The right tube and ovary were elevated. The vessel sealer was used to clamp, cauterize and divide the mesovarium and the IP ligament and that was continued across the mesovarium to the round ligament, across the broad ligament down on the cardinal ligament. Same procedure was performed on the left, thus allowing for removal of both tubes and ovaries eventually with the uterus. The anterior lower uterine segment was exposed, the vessel sealer was replaced with a monopolar shear and the anterior lower uterine segment peritoneum was divided. The bladder was carefully dissected down off the lower uterine segment and colpotomy incision was started at 12 o'clock position. That incision was continued circumferentially until the entire colpotomy ring was exposed and then the uterus with tubes and ovaries attach was extracted through the vagina. Using a Cobra grasper on the left and a cari cut needle cpr ambulance driver on the right and a single suture of V-Loc barbed suture was used to close the vaginal cuff in a running manner with occasional locking stitch to ensure hemostasis. Care was taken to include the uterine vessel pedicles bilaterally for insurance of hemostasis. With the cuff closed, the bladder peritoneum was brought back over the cuff with the last two stitches. Pelvis was examined for abnormal pathology. There being none and hemostasis being complete, the procedure was terminated. The ureters were seemed to peristalse a final time, they were both normal in caliber and activity and were away from the areas of obvious dissection. With sponge, needle counts correct and hemostasis assured, the procedure was terminated. The operative instruments were removed under direct vision as were the ports. The abdomen was evacuated of the insufflating gas in the process of removing the ports. The skin incisions were stapled after first closing the fascia at the supraumbilical incision with [id number] suture of 2-0 Vicryl. Speculum replaced in the vagina. The vaginal cuff examined and found completely intact and completely hemostatic. Hayes catheter was left to dependent drainage. Sponge and needle counts were correct. Estimated blood loss was minimal. The patient was now uneventfully awakened from her general anesthesia and transferred to recovery room in stable condition. Job ID: [id number] DocumentID: [id number] Dictated Date: 08/10/2019 13:59:48 [employer] Teacher Date: 08/11/2019 00:16:47 Dictated By: TABITHA SUAREZ MD
--- NOTE | 2019-08-11 02:00 | NUR ---
Pt. up to void. 1000ml of clear, straw colored urine collected in hat. Tolerated well.
[2019-08-11 05:00] VITALS: BP 138/66
[2019-08-11] MEDS: KETOROLAC 15 MG/ML VIAL IVP SCH (05:07)
--- NOTE | 2019-08-11 07:27 | Progress Note ---
Standard Progress Note Progress Notes/Assess & Plan Date Seen by a Provider: Aug 11, 2019 Time Seen by a Provider: 07:26 Progress/Assessment & Plan This patient is without complaint. She is ambulating, voiding, tolerating oral intake well has good pain control. Vital Signs Date Time Temp Pulse Resp B/P (MAP) Pulse Ox O2 Delivery O2 Flow Rate FiO2 08/11/19 05:00 36.9 70 18 138/66 (90) 96 Room Air 08/10/19 23:50 36.7 73 16 136/66 (89) 98 Room Air 08/10/19 19:30 36.4 81 18 141/75 (97) 97 Room Air 08/10/19 15:30 35.9 65 16 135/61 (85) 98 Room Air 08/10/19 15:07 Room Air 08/10/19 15:00 36.4 17 114/58 (76) 95 Room Air 08/10/19 14:57 Room Air 08/10/19 14:50 18 100 OxyMask 1 08/10/19 14:46 OxyMask 1 08/10/19 14:40 14 126/60 (82) 100 OxyMask 2 08/10/19 14:34 OxyMask 2 08/10/19 14:30 12 117/59 (78) 100 OxyMask 3 08/10/19 14:25 OxyMask 5 08/10/19 14:20 13 106/57 (73) 100 OxyMask 5 08/10/19 14:09 OxyMask 5 08/10/19 14:09 36.2 13 94/50 (65) 100 OxyMask 5 08/10/19 11:42 36.3 96 18 142/79 (100) 100 Simple Mask I & O 08/11/19 07:00 Intake Total 5000 ml Output Total 3300 ml Balance 1700 ml Vital signs are stable. Patient is afebrile. The abdomen is benign the surgical dressings are clean and dry. Extremities show no clubbing or cyanosis there is no Homans sign. Assessment and plan postoperative day number 1 doing well. Plan is for discharge home with follow-up in clinic TABITHA SUAREZ MD Aug 11, 2019 07:27
--- NOTE | 2019-08-11 07:30 | NUR ---
Dr. Parsons here to see pt. Orders rec'd for discharge.
[2019-08-11 08:30] VITALS: BP 150/83
[2019-08-11] MEDS ORDERED: DOCUSATE SODIUM 100 MG (COLACE) CAP PO SCH (09:00)
--- NOTE | 2019-08-11 09:10 | NUR ---
Discharge instructions explained to pt with copy provided to pt. Prescriptions previously given to and have already been filled. Pt verbalizes understanding of instructions, denies questions or concerns. Pt assisted to wheelchair, all personal belongings with S.O. Pt wheeled to private vehicle accompanied by S.O. and RN. No s/s of distress noted.
--- NOTE | 2019-08-11 10:01 | Anesthesia-General Post-Op ---
General Patient Condition Mental Status/LOC: Same as Preop Cardiovascular: Satisfactory Nausea/Vomiting: Absent Respiratory: Satisfactory Pain: Controlled Complications: Absent Post Op Complications Complications None Follow Up Care/Instructions Patient Instructions None needed. Anesthesia/Patient Condition Patient Condition Patient is doing well, no complaints, stable vital signs, no apparent adverse anesthesia problems. No complications reported per nursing. D/C home per [facility] [place] Criteria: Yes ROMIE ALVARADO CRNA Aug 11, 2019 10:01
[2019-08-11] MEDS ORDERED: IBUPROFEN TABLET 200 MG TAB PO SCH (16:00)
[2019-08-11] MEDS ORDERED: IBUPROFEN 800 MG (MOTRIN) TAB PO SCH (18:00)
== END 2019-08-11 09:10 | disposition home or self-care (01) ==
LOC: SDC 11:07 → WS 15:20 → SDC 08-11 09:10
PROVIDERS: ATTEND Obstetrics & Gynecology
DX: N85.8 Other specified noninflammatory disorders of uterus (principal); N83.312 Acquired atrophy of left ovary; N83.311 Acquired atrophy of right ovary; N94.89 Other specified conditions associated with female genital organs and menstrual cycle; D25.9 Leiomyoma of uterus, unspecified; N95.0 Postmenopausal bleeding; M19.90 Unspecified osteoarthritis, unspecified site; F41.9 Anxiety disorder, unspecified; J30.2 Other seasonal allergic rhinitis; I10 Essential (primary) hypertension; Z79.899 Other long term (current) drug therapy; Z82.49 Family history of ischemic heart disease and other diseases of the circulatory system; Z83.3 Family history of diabetes mellitus
CPT/HCPCS: 86850; 86900; 86901; 88307; 94664